=== PATIENT | male | born 1990 | race Asian ===

== ENCOUNTER 2019-01-20 10:25 | Emergency (ER) | payer OTHER ==
[~2019-01-20] VITALS: Ht 180.3 cm; Wt 79.8 kg
[2019-01-20 10:37] VITALS: BP 151/90
== END 2019-01-20 10:40 | disposition left against medical advice (07) ==
LOC: ED 10:25
DX: Z53.21 Procedure and treatment not carried out due to patient leaving prior to being seen by health care provider (principal)